=== PATIENT | male | born 1965 | race Caucasian/White ===

== ENCOUNTER → 2020-04-14 | Outpatient (CLI) | payer OTHER ==
--- NOTE | 2020-04-15 12:07 | US ---
EXAM DESCRIPTION: Soft Tissue,Extremity CLINICAL HISTORY: 54 years Male, LEFT HEEL PAIN COMPARISON: None. FINDINGS: Sono findings show thickened appearance of the distal left Achilles tendon. This could be chronic tendinosis. No focal disruption to suggest acute tendinous tear. No fluid collection to suggest hematoma or seroma. Visualized muscular structures appear intact. MRI may be helpful to evaluate the Achilles tendon. IMPRESSION: Sono findings consistent with thickened left Achilles tendon. Electronically signed by: Surya Velazquez MD 04/15/2020 12:05 PM CDT
== END ==
LOC: US 10:52
PROVIDERS: ATTEND Family Medicine
DX: M79.672 Pain in left foot (principal)